=== PATIENT | male | born 1940 | race Caucasian/White ===

== ENCOUNTER → 2017-03-06 | Outpatient (CLI) | payer MEDICARE ==
[~2017-03-06] MED LIST: /WARF25TA OR; ACET65TA OR; LISI10TA4 PO; OMEP20TA7 PO; PERC5TAB8 OR; PROS5TAB OR; aleve; saw palmetto PO
== END ==
LOC: M SMT 10:12
PROVIDERS: ATTEND Urology
DX: N40.0 Benign prostatic hyperplasia without lower urinary tract symptoms (principal)

== ENCOUNTER → 2018-03-14 | Outpatient (CLI) | payer MEDICARE ==
[2018-03-14 13:42] LABS: PSA SCREENING 3.66 NG/ML (< 4.0)
== END ==
LOC: M SMT 09:50
DX: Z12.5 Encounter for screening for malignant neoplasm of prostate (principal)
CPT/HCPCS: G0103

== ENCOUNTER → 2018-03-20 | Outpatient (REF) | payer MEDICARE ==
[2018-03-20 14:11] LABS: APPEARANCE, URINE CLEAR (CLEAR); BACTERIA, URINE AUTO NEGATIVE (NEGATIVE); BILIRUBIN, URINE AUTO NEGATIVE (NEGATIVE); BLOOD, URINE BLOOD NEGATIVE (NEGATIVE); COLOR, URINE YELLOW (YELLOW); GLUCOSE, URINE (UA) AUTO NEGATIVE (NEGATIVE); KETONE, URINE AUTO NEGATIVE (NEGATIVE); LEUKOCYTE ESTERASE, URINE AUTO NEGATIVE (NEGATIVE); MUCUS, URINE SMALL (NEGATIVE); NITRITE, URINE AUTO NEGATIVE (NEGATIVE); PROTEIN, URINE AUTO NEGATIVE (NEGATIVE); RBC, URINE AUTO 0 /HPF (0-3); SPECIFIC GRAVITY URINE AUTO 1.009 (1.002-1.035); SQUAMOUS EPITHELIAL CELL UR AU 0 /HPF (0-6); UROBILINOGEN, URINE AUTO 0.2 mg/dL (0.0-2.0); WBC, URINE AUTO 0 /HPF (0-3)
== END ==
LOC: M SMT 13:16
DX: N40.0 Benign prostatic hyperplasia without lower urinary tract symptoms (principal)
CPT/HCPCS: 81001

== ENCOUNTER 2018-06-12 12:09 | Emergency (ER) | payer MEDICARE ==
[~2018-06-12] VITALS: Ht 175.3 cm; Wt 81.8 kg
[2018-06-12] MEDS ORDERED: MECLIZINE 25 MG TABLET PO ONE (13:30)
--- NOTE | 2018-06-12 13:40 | ECGEPIP ---
Stationary ECG Study [facility] - ED Test Date: 2018-06-12 Pat Name: DAVI LAZAR Department: Room: - Gender: M Utility Porter: TC : 1940 Requested By: Desirae Garcia Order Number: [id number] Reading MD: Ron Esteban Measurements Intervals [place] Rate: 54 P: 43 MS: 152 QRS: 1 QRSD: 131 T: 5 QT: 433 QTc: 411 Interpretive Statements SINUS BRADYCARDIA RIGHT BUNDLE BRANCH BLOCK, NEW COMPARED TO 08/25/14 Electronically Signed On 06-12-2018 13:40:06 EST by Ron Esteban
[2018-06-12 13:46] LABS: BASO # 0.1 10^3/uL (0.0-0.2); BASO % 0.6 % (0.0-1.0); EOS # 0.2 10^3/uL (0.0-0.50); EOS % 2.6 % (0.0-3.0); LYMPH # 1.6 10^3/uL (1.5-4.5); LYMPH % 20.1 % (24.0-44.0); MEAN CORPUSCULAR HEMOGLOBIN 29.6 pg (27.0-33.0); MEAN CORPUSCULAR HGB CONC 32.6 g/dl (32.0-36.5); MEAN CORPUSCULAR VOLUME 90.9 fl (80.0-96.0); MONO # 0.5 10^3/uL (0.0-0.8); MONO % 6.6 % (0.0-5.0); NEUTROPHILS # 5.6 10^3/uL (1.8-7.7); NEUTROPHILS % 69.7 % (36.0-66.0); PLATELET COUNT, AUTOMATED 301 10^3/uL (150-450); RED BLOOD COUNT 5.06 10^6/uL (4.30-6.10)
--- NOTE | 2018-06-12 13:46 | REP ---
CT Head without contrast HISTORY: Headache COMPARISON: 10/09/2014 Areas of decreased attenuation are present in the periventricular white matter. This represents small-vessel ischemic disease. There is no intraparenchymal hemorrhage, acute infarct, mass or midline shift. The ventricular system and cortical sulci are dilated consistent with minimal volume loss. There is no extra cerebral collection. There is no fracture. Mucosal thickening is present in the right sphenoid sinus. IMPRESSION: 1. Small vessel ischemic disease. 2. Minimal volume loss. Electronically Signed by Javid Juares MD 06/12/2018 01:37 P
[2018-06-12 13:57] LABS: ALBUMIN 3.6 GM/DL (3.2-5.2); ALT/SGPT 30 U/L (12-78); BILIRUBIN,TOTAL 0.3 MG/DL (0.2-1.0); BLOOD UREA NITROGEN 11 MG/DL (7-18); CARBON DIOXIDE LEVEL 29 MEQ/L (21-32); CHLORIDE LEVEL 104 MEQ/L (98-107); CK-MB VALUE MASS < 1.0 NG/ML (<3.6); CPK CREATINE PHOSPHOKINASE 82 U/L (39-308); CREATININE FOR GFR 0.91 MG/DL (0.70-1.30); GLOMERULAR FILTRATION RATE > 60.0 (>42); GLUCOSE, FASTING 104 MG/DL (70-100); MB/CK RELATIVE INDEX 1.22 (< OR =4); POTASSIUM SERUM 3.6 MEQ/L (3.5-5.1); SODIUM LEVEL 138 MEQ/L (136-145); TOTAL PROTEIN 8.1 GM/DL (6.4-8.2); TROPONIN I < 0.02 NG/ML (< 0.10)
[2018-06-12] MEDS ORDERED: MECL-68 PO (15:52)
[2018-06-12 16:04] VITALS: BP 143/83
== END 2018-06-12 16:06 | disposition home or self-care (01) ==
LOC: M ED 12:09
DX: R42 Dizziness and giddiness (principal); I45.10 Unspecified right bundle-branch block; I10 Essential (primary) hypertension; K21.9 Gastro-esophageal reflux disease without esophagitis; Z79.899 Other long term (current) drug therapy; Z88.5 Allergy status to narcotic agent; Z88.8 Allergy status to other drugs, medicaments and biological substances

== ENCOUNTER → 2019-03-20 | Outpatient (CLI) | payer MEDICARE ==
[~2019-03-20] MED LIST changes: -/WARF25TA OR; +COUM1TAB18 OR; +MECL-68 PO
== END ==
LOC: M SMT 09:35
PROVIDERS: ATTEND Nurse Practitioner Women's Health
DX: Z12.5 Encounter for screening for malignant neoplasm of prostate (principal)
CPT/HCPCS: 36415; G0103

== ENCOUNTER 2020-06-02 08:21 | Emergency (ER) | payer MEDICARE ==
[~2020-06-02] VITALS: Ht 175.3 cm; Wt 85.5 kg
[~2020-06-02 08:21] MED LIST changes: -MECL-68 PO; +MECL1TAB31 PO
[2020-06-02] MEDS ORDERED: FINA5TAB2 PO (08:32)
[2020-06-02 09:02] LABS: BASO # 0.1 10^3/uL (0.0-0.2); BASO % 0.8 % (0.0-1.0); EOS # 0.3 10^3/uL (0.0-0.5); EOS % 4.6 % (0.0-3.0); HEMATOCRIT 44.9 % (42.0-52.0); HEMOGLOBIN 14.4 g/dl (13.5-17.5); LYMPH # 2.1 10^3/uL (1.5-5.0); LYMPH % 31.5 % (24.0-44.0); MEAN CORPUSCULAR HEMOGLOBIN 29.6 pg (27.0-33.0); MEAN CORPUSCULAR HGB CONC 32.1 g/dl (32.0-36.5); MEAN CORPUSCULAR VOLUME 92.2 fl (80.0-96.0); MONO # 0.6 10^3/uL (0.0-0.8); MONO % 8.8 % (0.0-5.0); NEUTROPHILS # 3.5 10^3/uL (1.5-8.5); NEUTROPHILS % 54.1 % (36.0-66.0); PLATELET COUNT, AUTOMATED 278 10^3/uL (150-450); RED BLOOD COUNT 4.87 10^6/uL (4.30-6.10); WHITE BLOOD COUNT 6.5 10^3/uL (4.0-10.0)
[2020-06-02] MEDS ORDERED: ONDANSETRON 4MG/2ML VIAL As Ordered ONE (09:05)
--- NOTE | 2020-06-02 09:05 | REP ---
INDICATION: vertigo COMPARISON: 06/12/2018, 10/09/2014 TECHNIQUE: Axial noncontrast images from the skull base to the thoracic inlet with coronal reformations. This CT examination was performed using the following dose reduction techniques: Automated exposure control, adjustment of mA and/or kv according to the patient's size, and use of iterative reconstruction technique. FINDINGS: Age-related atrophy and microvascular ischemic changes are appreciated. The ventricles and sulci are symmetric. Holland-white differentiation is maintained. There is no evidence for acute intracranial hemorrhage, mass/mass effect, pathology or infarction. No extra-axial fluid collection. Calvarium is intact. Paranasal sinuses and mastoid air cells are clear. IMPRESSION: Age related atrophy and microvascular ischemic changes. No acute intracranial hemorrhage, infarction, or mass/mass effect. <Electronically signed by Gadiel Malik > 06/02/20 [id number]
--- NOTE | 2020-06-02 09:10 | REP ---
INDICATION: Syncope/near-syncope COMPARISON: 02/04/2013 TECHNIQUE: Portable AP view of the chest FINDINGS: The mediastinum and cardiac silhouette are stable and within normal limits for portable technique. The lung block are clear without acute consolidation, effusion, or pneumothorax. Skeletal structures are intact. IMPRESSION: No acute cardiopulmonary process appreciated. <Electronically signed by Gadiel Malik > 06/02/20 [id number]
[2020-06-02] MEDS ORDERED: ONDANSETRON 4MG/2ML VIAL IV ONE (09:15)
[2020-06-02 09:40] LABS: BLOOD UREA NITROGEN 12 MG/DL (7-18); CALCIUM LEVEL 8.8 MG/DL (8.8-10.2); CARBON DIOXIDE LEVEL 29 MEQ/L (21-32); CHLORIDE LEVEL 107 MEQ/L (98-107); CPK CREATINE PHOSPHOKINASE 69 U/L (39-308); CREATININE FOR GFR 0.91 MG/DL (0.70-1.30); FREE T4 1.04 NG/DL (0.76-1.46); GLOMERULAR FILTRATION RATE > 60.0 (>35); GLUCOSE, FASTING 108 MG/DL (70-100); MAGNESIUM LEVEL 2.1 MG/DL (1.8-2.4); POTASSIUM SERUM 3.8 MEQ/L (3.5-5.1); SODIUM LEVEL 143 MEQ/L (136-145); TROPONIN I < 0.02 NG/ML (< 0.10)
[2020-06-02 09:43] LABS: CK-MB VALUE MASS < 1.0 NG/ML (<3.6); MB/CK RELATIVE INDEX 1.45 (< OR =4)
[2020-06-02 09:44] LABS: INR 0.92; PROTHROMBIN TIME 12.6 SECONDS (12.5-14.3)
[2020-06-02 09:45] LABS: PARTIAL THROMBOPLASTIN TIME 26.3 SECONDS (24.2-38.5)
[2020-06-02 13:45] VITALS: BP 140/78
--- NOTE | 2020-06-03 13:27 | ECGEPIP ---
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
== END 2020-06-02 14:14 | disposition home or self-care (01) ==
LOC: M ED 08:21
DX: R26.81 Unsteadiness on feet (principal); I45.10 Unspecified right bundle-branch block; I10 Essential (primary) hypertension; E78.5 Hyperlipidemia, unspecified; K21.9 Gastro-esophageal reflux disease without esophagitis; N40.0 Benign prostatic hyperplasia without lower urinary tract symptoms; Z79.899 Other long term (current) drug therapy; Z88.5 Allergy status to narcotic agent; Z87.891 Personal history of nicotine dependence
CPT/HCPCS: 70450; 71045; 80048; 81001; 82550; 82553; 83605; 83735; 84439; 84443; 84484; 85025; 85610; 85730; 93005; 93041; 94760; 96374; 97112; 97116; 97161; 99285; J2405

== ENCOUNTER 2020-08-09 17:33 | Emergency (ER) | payer MEDICARE ==
[~2020-08-09] VITALS: Ht 177.8 cm; Wt 87.6 kg
[~2020-08-09 17:33] MED LIST changes: +FINA5TAB2 PO
[2020-08-09] MEDS ORDERED: SM S160C PO (17:45)
[2020-08-09] MEDS ORDERED: MECLIZINE 25 MG TABLET PO ONE (18:45)
[2020-08-09 19:02] LABS: BASO % 0.4 % (0.0-1.0); EOS # 0.1 10^3/uL (0.0-0.5); EOS % 1.3 % (0.0-3.0); HEMATOCRIT 44.5 % (42.0-52.0); HEMOGLOBIN 14.5 g/dl (13.5-17.5); LYMPH # 1.6 10^3/uL (1.5-5.0); LYMPH % 15.9 % (24.0-44.0); MEAN CORPUSCULAR HEMOGLOBIN 29.8 pg (27.0-33.0); MEAN CORPUSCULAR HGB CONC 32.6 g/dl (32.0-36.5); MEAN CORPUSCULAR VOLUME 91.4 fl (80.0-96.0); MONO # 0.7 10^3/uL (0.0-0.8); NEUTROPHILS # 7.7 10^3/uL (1.5-8.5); PLATELET COUNT, AUTOMATED 275 10^3/uL (150-450); RED BLOOD COUNT 4.87 10^6/uL (4.30-6.10); WHITE BLOOD COUNT 10.2 10^3/uL (4.0-10.0)
--- NOTE | 2020-08-09 19:29 | REPVR ---
PROCEDURE INFORMATION: Exam: CT Head Without Contrast Exam date and time: 08/09/2020 6:58 PM Age: 79 years old Clinical indication: Altered mental status/memory loss TECHNIQUE: Imaging protocol: Computed tomography of the head without contrast. Radiation optimization: All CT scans at this facility use at least one of these dose optimization techniques: automated exposure control; mA and/or kV adjustment per patient size (includes targeted exams where dose is matched to clinical indication); or iterative reconstruction. COMPARISON: CT Head without contrast 06/02/2020 8:51 AM FINDINGS: Brain: Mild nonspecific hypodensities of the periventricular and deep subcortical white matter, most likely secondary to chronic small vessel ischemic change. No intracranial hemorrhage or extra-axial fluid collection. No evidence of mass effect or midline shift. Holland-white matter differentiation is normal. Cerebral ventricles: Mild prominence of the ventricles and sulci, most likely attributed to parenchymal volume loss. Bones/joints: No acute osseus lesion or fracture. Paranasal sinuses: Visualized sinuses are unremarkable. No fluid levels. Mastoid air cells: Unremarkable. Soft tissues: Unremarkable. IMPRESSION: 1. No acute intracranial pathology. 2. Other chronic findings, as above. Electronically signed by: Elmer Shelton On 08/09/2020 19:29:09 PM
[2020-08-09 19:30] LABS: ALBUMIN 3.8 GM/DL (3.2-5.2); ALT/SGPT 43 U/L (12-78); BILIRUBIN,DIRECT 0.2 MG/DL (0.0-0.2); BILIRUBIN,TOTAL 0.5 MG/DL (0.2-1.0); BLOOD UREA NITROGEN 14 MG/DL (7-18); CALCIUM LEVEL 9.2 MG/DL (8.8-10.2); CARBON DIOXIDE LEVEL 29 MEQ/L (21-32); CHLORIDE LEVEL 106 MEQ/L (98-107); CK-MB VALUE MASS < 1.0 NG/ML (<3.6); CPK CREATINE PHOSPHOKINASE 100 U/L (39-308); CREATININE FOR GFR 0.87 MG/DL (0.70-1.30); GLOMERULAR FILTRATION RATE > 60.0 (>35); GLUCOSE, FASTING 115 MG/DL (70-100); POTASSIUM SERUM 4.1 MEQ/L (3.5-5.1); SODIUM LEVEL 140 MEQ/L (136-145); TOTAL PROTEIN 7.4 GM/DL (6.4-8.2); TROPONIN I < 0.02 NG/ML (< 0.10)
[2020-08-09 20:00] VITALS: BP 157/83
[2020-08-09] MEDS ORDERED: MECL1TAB31 PO (20:33)
--- NOTE | 2020-08-10 07:12 | ECGEPIP ---
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
== END 2020-08-09 20:46 | disposition home or self-care (01) ==
LOC: M ED 17:33
DX: R42 Dizziness and giddiness (principal); I45.10 Unspecified right bundle-branch block; I10 Essential (primary) hypertension; K21.9 Gastro-esophageal reflux disease without esophagitis; Z79.899 Other long term (current) drug therapy; Z88.5 Allergy status to narcotic agent; Z87.891 Personal history of nicotine dependence

== ENCOUNTER 2020-10-23 11:32 | Emergency (ER) | payer MEDICARE ==
[~2020-10-23] VITALS: Ht 177.8 cm; Wt 86.4 kg
[~2020-10-23 11:32] MED LIST changes: +SM S160C PO
--- NOTE | 2020-10-23 12:19 | REP ---
INDICATION: DYSPNEA/COUGH. COMPARISON: Comparison chest x-ray June 02, 2020. TECHNIQUE: Portable upright AP chest radiograph. FINDINGS: The lungs are well inflated and free of infiltrate. Pleural angles are sharp. Heart size is normal. Pulmonary vasculature is not increased. EKG monitoring electrodes are seen. IMPRESSION: No active disease. <Electronically signed by Juanito Jamil > 10/23/20 [id number]
[2020-10-23 12:28] LABS: VENOUS BASE EXCESS 1.2 (-2.0-2.0); VENOUS HCO3 24.8 MEQ/L (23.0-27.0); VENOUS O2 SATURATION 99.4 % (60.0-80.0); VENOUS PARTIAL PRESSURE CO2 36.2 mmHg (38.0-50.0); VENOUS PARTIAL PRESSURE O2 175.8 mmHg (30.0-50.0); VENOUS PH 7.453 UNITS (7.330-7.430); VENOUS STANDARD HCO3 25.6 MEQ/L; VENOUS TOTAL CO2 25.9 MEQ/L (24.0-28.0)
[2020-10-23 12:31] LABS: BASO # 0.1 10^3/uL (0.0-0.2); BASO % 0.8 % (0.0-1.0); EOS # 0.2 10^3/uL (0.0-0.5); EOS % 3.5 % (0.0-3.0); HEMATOCRIT 45.3 % (42.0-52.0); HEMOGLOBIN 14.7 g/dl (13.5-17.5); LYMPH # 1.5 10^3/uL (1.5-5.0); LYMPH % 24.8 % (24.0-44.0); MEAN CORPUSCULAR HEMOGLOBIN 29.8 pg (27.0-33.0); MEAN CORPUSCULAR HGB CONC 32.5 g/dl (32.0-36.5); MEAN CORPUSCULAR VOLUME 91.9 fl (80.0-96.0); MONO # 0.6 10^3/uL (0.0-0.8); MONO % 9.8 % (2.0-8.0); NEUTROPHILS # 3.7 10^3/uL (1.5-8.5); NEUTROPHILS % 60.9 % (36.0-66.0); PLATELET COUNT, AUTOMATED 262 10^3/uL (150-450); RED BLOOD COUNT 4.93 10^6/uL (4.30-6.10)
[2020-10-23 13:12] LABS: ALBUMIN 3.5 GM/DL (3.2-5.2); BILIRUBIN,DIRECT 0.1 MG/DL (0.0-0.2); BILIRUBIN,TOTAL 0.6 MG/DL (0.2-1.0); THYROID STIMULATING HORMONE 1.2 uIU/ML (0.358-3.740); TOTAL PROTEIN 7.2 GM/DL (6.4-8.2)
[2020-10-23] MEDS ORDERED: ISOVUE-370 76% 100ML VIAL As Ordered ONE (13:28)
--- NOTE | 2020-10-23 13:55 | REP ---
INDICATION: dyspnea. COMPARISON: Comparison is made with today's chest x-ray.. TECHNIQUE: Contrast dose: 75 ML of Isovue [address] technique: Helical scanning is acquired and overlapping 1.5 mm and contiguous 3 mm axial images are reformatted. In addition, maximum intensity projection and multiplanar re-formation images are generated in sagittal and coronal imaging projections. FINDINGS: There is good opacification in the pulmonary arterial tree. There is no evidence of vessel cut off or filling defect to suggest pulmonary embolus. Homogeneous opacity is seen in the thoracic aorta. There is no evidence of aneurysm or dissection. Lung window settings demonstrate no focal infiltrate. No pulmonary parenchymal mass or significant nodule is appreciated. There is no evidence of pleural or pericardial effusion. There is moderate vascular calcification along the course of the left coronary artery. In the upper abdomen, normal adrenal glands are observed. There is a small cyst in the upper pole the right kidney and there is pancolonic diverticulosis visible. Bone window settings show no bony destructive lesion. IMPRESSION: No CT evidence of pulmonary embolus. Extensive left coronary artery vascular calcification. Small cyst upper pole right kidney. Colonic diverticulosis. Otherwise negative. <Electronically signed by Juanito Jamil > 10/23/20 [id number]
[2020-10-23] MEDS ORDERED: ASPI81CH33 PO (14:14)
[2020-10-23] MEDS ORDERED: ASPIRIN 81 MG CHEW TABLET PO ONE (14:15)
[2020-10-23 14:17] VITALS: BP 167/81
--- NOTE | 2020-10-24 07:44 | ECGEPIP ---
[facility] - ED Test Date: 2020-10-23 Pat Name: DAVI LAZAR Department: Room: - Gender: Male Helper Electrical: IRINA : 1940 Requested By: Desirae Garcia Order Number: [id number] Reading MD: Ron Esteban Measurements Intervals [place] Rate: 56 P: 44 IN: 158 QRS: -21 QRSD: 126 T: 1 QT: 434 QTc: 418 Interpretive Statements Sinus bradycardia Right bundle branch block SIMILAR TO 08/09/20 Electronically Signed on 10-24-2020 7:44:24 EDT by Ron Esteban
--- NOTE | 2020-10-25 11:10 | ED PDOC ---
Post-Departure Follow-Up [facility] and [facility] faxed formal report of cta chest for fu Siddharth Miller MD October 25, 2020 11:10
== END 2020-10-23 14:29 | disposition home or self-care (01) ==
LOC: M ED 11:32
DX: R06.00 Dyspnea, unspecified (principal); R00.1 Bradycardia, unspecified; I45.10 Unspecified right bundle-branch block; I10 Essential (primary) hypertension; E78.5 Hyperlipidemia, unspecified; K21.9 Gastro-esophageal reflux disease without esophagitis; Z87.891 Personal history of nicotine dependence; Z85.46 Personal history of malignant neoplasm of prostate; I25.84 Coronary atherosclerosis due to calcified coronary lesion; N28.1 Cyst of kidney, acquired; K57.30 Diverticulosis of large intestine without perforation or abscess without bleeding; Z79.82 Long term (current) use of aspirin; Z79.899 Other long term (current) drug therapy; Z88.5 Allergy status to narcotic agent
CPT/HCPCS: 71045; 71275; 80047; 80076; 82803; 83880; 84443; 84484; 85025; 93005; 93041; 99285; Q9967

== ENCOUNTER 2021-01-07 10:17 | Emergency (ER) | payer MEDICARE ==
[~2021-01-07] VITALS: Ht 177.8 cm; Wt 85.1 kg
[2021-01-07 10:17] VITALS: BP 174/85
[~2021-01-07 10:17] MED LIST changes: +ASPI81CH33 PO; +RA S160C PO; -SM S160C PO
== END 2021-01-07 11:31 | disposition left against medical advice (07) ==
LOC: M ED 10:17
DX: Z53.29 Procedure and treatment not carried out because of patient's decision for other reasons (principal)

== ENCOUNTER → 2021-01-20 | Outpatient (CLI) | payer MEDICARE ==
[~2021-01-20] MED LIST changes: -RA S160C PO; +SM S160C PO
--- NOTE | 2021-01-20 17:30 | REP ---
INDICATION: CERVICALGIA. COMPARISON: None. TECHNIQUE: Full cervical spine series including flexion extension lateral views, 7 views obtained. FINDINGS: There is no evidence of compression fracture. With flexion there is minimal anterolisthesis of C4 on C5, approximately 2 mm. There is mild diffuse spurring. There is moderate disc space narrowing and subchondral sclerosis at C5-6 and C6-7. There is diffuse narrowing, sclerosis and spurring at the posterior facet joints. I suspect moderate foraminal narrowing on the right at C3-4. I suspect mild foraminal narrowing on the right at C4-5. I suspect mild bilateral narrowing of the neural foramina at C5-6 and C6-7. IMPRESSION: Degenerative changes as above. <Electronically signed by Chadwick Holland > 01/20/21 [id number]
== END ==
LOC: M PLAIMG 11:34
PROVIDERS: ATTEND Physician Assistant
DX: M54.2 Cervicalgia (principal)

== ENCOUNTER 2021-01-27 18:20 | Emergency (ER) | payer MEDICARE ==
[~2021-01-27] VITALS: Ht 177.8 cm; Wt 84.3 kg
--- NOTE | 2021-01-27 19:23 | REP ---
INDICATION: CHEST PAIN COMPARISON: 10/23/2020 TECHNIQUE: Portable AP view of the chest FINDINGS: The mediastinum and cardiac silhouette are stable and within normal limits for portable technique. The lung block are clear without acute consolidation, effusion, or pneumothorax. Skeletal structures are intact. IMPRESSION: No acute cardiopulmonary process appreciated. <Electronically signed by Gadiel Malik > 01/27/21 [id number]
[2021-01-27 19:42] LABS: BASO # 0.1 10^3/uL (0.0-0.2); BASO % 0.7 % (0.0-1.0); EOS # 0.2 10^3/uL (0.0-0.5); EOS % 2.1 % (0.0-3.0); HEMATOCRIT 45.6 % (42.0-52.0); HEMOGLOBIN 14.9 g/dl (13.5-17.5); LYMPH # 1.8 10^3/uL (1.5-5.0); LYMPH % 24.6 % (24.0-44.0); MEAN CORPUSCULAR HEMOGLOBIN 29.9 pg (27.0-33.0); MEAN CORPUSCULAR HGB CONC 32.7 g/dl (32.0-36.5); MEAN CORPUSCULAR VOLUME 91.6 fl (80.0-96.0); MONO # 0.6 10^3/uL (0.0-0.8); MONO % 8.2 % (2.0-8.0); NEUTROPHILS # 4.8 10^3/uL (1.5-8.5); PLATELET COUNT, AUTOMATED 285 10^3/uL (150-450); RED BLOOD COUNT 4.98 10^6/uL (4.30-6.10); WHITE BLOOD COUNT 7.5 10^3/uL (4.0-10.0)
[2021-01-27 20:00] LABS: BLOOD UREA NITROGEN 8 MG/DL (7-18); CALCIUM LEVEL 9.4 MG/DL (8.8-10.2); CARBON DIOXIDE LEVEL 29 MEQ/L (21-32); CHLORIDE LEVEL 109 MEQ/L (98-107); CK-MB VALUE MASS 1.1 NG/ML (<3.6); CPK CREATINE PHOSPHOKINASE 77 U/L (39-308); GLOMERULAR FILTRATION RATE > 60.0 (>35); GLUCOSE, FASTING 99 MG/DL (70-100); MB/CK RELATIVE INDEX 1.43 (< OR =4); POTASSIUM SERUM 4.1 MEQ/L (3.5-5.1); SODIUM LEVEL 142 MEQ/L (136-145); TROPONIN I < 0.02 NG/ML (< 0.10)
[2021-01-27 22:06] LABS: CK-MB VALUE MASS < 1.0 NG/ML (<3.6); CPK CREATINE PHOSPHOKINASE 62 U/L (39-308); MB/CK RELATIVE INDEX 1.61 (< OR =4); TROPONIN I < 0.02 NG/ML (< 0.10)
[2021-01-27 22:31] VITALS: BP 165/97
--- NOTE | 2021-01-28 21:17 | ECGEPIP ---
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
--- NOTE | 2021-01-28 21:18 | ECGEPIP ---
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
== END 2021-01-27 23:02 | disposition home or self-care (01) ==
LOC: M ED 18:20
DX: R07.89 Other chest pain (principal); I45.10 Unspecified right bundle-branch block; I10 Essential (primary) hypertension; K21.9 Gastro-esophageal reflux disease without esophagitis; Z88.5 Allergy status to narcotic agent; Z79.899 Other long term (current) drug therapy

== ENCOUNTER 2021-03-08 16:46 | Emergency (ER) | payer MEDICARE ==
[~2021-03-08] VITALS: Ht 177.8 cm; Wt 81.8 kg
[2021-03-08] MEDS ORDERED: ACETAMINOPHEN TAB 650MG DOSE (2X325MG) PO PRN (17:30)
--- NOTE | 2021-03-08 18:09 | REP ---
INDICATION: Coronavirus workup COMPARISON: 01/27/2021 TECHNIQUE: Portable AP view of the chest FINDINGS: The mediastinum and cardiac silhouette are stable and within normal limits for portable technique. The lung block are clear without acute consolidation, effusion, or pneumothorax. Skeletal structures are intact. IMPRESSION: No acute cardiopulmonary process appreciated. <Electronically signed by Gadiel Malik > 03/08/21 [id number]
[2021-03-08 18:49] LABS: BASO % 0.2 % (0.0-1.0); EOS % 0.6 % (0.0-3.0); HEMATOCRIT 45.3 % (42.0-52.0); HEMOGLOBIN 15.2 g/dl (13.5-17.5); LYMPH # 1.1 10^3/uL (1.5-5.0); LYMPH % 16.5 % (24.0-44.0); MEAN CORPUSCULAR HEMOGLOBIN 30.1 pg (27.0-33.0); MEAN CORPUSCULAR HGB CONC 33.6 g/dl (32.0-36.5); MEAN CORPUSCULAR VOLUME 89.7 fl (80.0-96.0); MONO # 0.6 10^3/uL (0.0-0.8); MONO % 8.5 % (2.0-8.0); NEUTROPHILS # 4.8 10^3/uL (1.5-8.5); NEUTROPHILS % 73.9 % (36.0-66.0); PLATELET COUNT, AUTOMATED 213 10^3/uL (150-450); RED BLOOD COUNT 5.05 10^6/uL (4.30-6.10); WHITE BLOOD COUNT 6.4 10^3/uL (4.0-10.0)
[2021-03-08 19:00] LABS: INR 0.97; PROTHROMBIN TIME 13.3 SECONDS (12.7-14.5)
[2021-03-08 19:01] LABS: PARTIAL THROMBOPLASTIN TIME 27.9 SECONDS (25.9-37.0)
[2021-03-08 19:04] LABS: D-DIMER QUANT 362.45 ng/ml (<500)
[2021-03-08 19:13] LABS: RSV AMPLIFICATION NEGATIVE (NEGATIVE)
[2021-03-08 19:22] LABS: ALBUMIN 3.5 GM/DL (3.2-5.2); ALT/SGPT 28 U/L (12-78); BILIRUBIN,TOTAL 0.5 MG/DL (0.2-1.0); BLOOD UREA NITROGEN 10 MG/DL (7-18); CALCIUM LEVEL 9.4 MG/DL (8.8-10.2); CARBON DIOXIDE LEVEL 28 MEQ/L (21-32); CHLORIDE LEVEL 103 MEQ/L (98-107); CK-MB VALUE MASS < 1.0 NG/ML (<3.6); CPK CREATINE PHOSPHOKINASE 46 U/L (39-308); CREATININE FOR GFR 0.76 MG/DL (0.70-1.30); FERRITIN 438 NG/ML (26-388); GLOMERULAR FILTRATION RATE > 60.0 (>35); GLUCOSE, FASTING 124 MG/DL (70-100); LDH LACTATE DEHYDROGENASE 152 U/L (87-241); MAGNESIUM LEVEL 2.1 MG/DL (1.8-2.4); MB/CK RELATIVE INDEX 2.17 (< OR =4); POTASSIUM SERUM 4.1 MEQ/L (3.5-5.1); SODIUM LEVEL 137 MEQ/L (136-145); TOTAL PROTEIN 7.1 GM/DL (6.4-8.2); TROPONIN I < 0.02 NG/ML (< 0.10)
[2021-03-09] MEDS ORDERED: EPINEPHrine INJ 1 MG/ML 1ML AMP IM PRN (00:35)
[2021-03-09] MEDS ORDERED: CASIRIVIMAB/IMDEVIMAB 1,200 MG in NS 250 ML IV ONE (00:35)
[2021-03-09] MEDS ORDERED: NS 1,000 ML IV SCH (00:35)
[2021-03-09] MEDS ORDERED: ACETAMINOPHEN TAB 650MG DOSE (2X325MG) PO ONE (00:35)
[2021-03-09] MEDS ORDERED: diphenhydrAMINE 50MG/ML VIAL (J1200) IV PRN (00:35)
[2021-03-09] MEDS ORDERED: ALBUTEROL SULFATE 2.5 MG/0.5 ML INH NEB SOLN INH PRN (00:35)
[2021-03-09] MEDS ORDERED: ALBUTEROL 90 MCG/ACT 8GM HFA INHALER INH PRN (00:35)
[2021-03-09] MEDS ORDERED: methylPREDNISolone 125MG 2ML VIAL IV PRN (00:35)
[2021-03-09] MEDS ORDERED: diphenhydrAMINE 25MG CAP PO ONE (00:35)
[2021-03-09 06:15] VITALS: BP 157/84
--- NOTE | 2021-03-09 17:38 | ECGEPIP ---
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
== END 2021-03-09 07:20 | disposition home or self-care (01) ==
LOC: M ED 16:46
DX: R53.1 Weakness (principal); U07.1 COVID-19; I10 Essential (primary) hypertension; K21.9 Gastro-esophageal reflux disease without esophagitis; Z88.5 Allergy status to narcotic agent; Z79.899 Other long term (current) drug therapy

== ENCOUNTER 2021-03-09 07:30 | Outpatient (CLI) | payer MEDICARE ==
[~2021-03-09] VITALS: Ht 177.8 cm; Wt 83.2 kg
--- NOTE | 2021-03-09 02:58 | HPEPDOC ---
General Date of Admission 03/09/21 Date of Service: Mar 09, 2021 Chief Complaint URI symptoms Source: Patient History of Present Illness Mr. Smith is an 80-year-old male with significant history of hypertension, chronic back pain, GERD, OA and BPH who presents with URI complaints. Patient reports feeling ill for the past week. Patient describes generalized fatigue/weakness, headache, subjective fever, dyspnea on exertion and dry cough. Patient Covid positive. Patient reports that he lives with roommate and she also tested positive for Covid. Patient fortunately has not required any oxygen and does with his age have risk factors meeting criteria for MAb. Patient agreeable to Mab. Home Medications Scheduled Finasteride (Finasteride) 5 Mg Tablet, PO DAILY, (Reported) Lisinopril (Lisinopril) 10 Mg Tab, 10 MG PO DAILY, (Reported) Meclizine HCl (Meclizine HCl) 25 Mg Tablet, 25 MG PO Q8H Omeprazole (Omeprazole) 20 Mg Tab, 40 MG PO DAILY, (Reported) Miscellaneous Medications Saw Toney (Saw Toney) 160 Mg Capsule, 160 MG PO, (Reported) Allergies Coded Allergies: oxycodone (Verified Adverse Reaction, Intermediate, vertigo, 06/02/20) Past Medical History Medical History hypertension, chronic back pain, GERD, OA, BPH Family History Significant Family History: No pertinent family hx Social History * Smoker: Denies Alcohol: Denies Drugs: denies Psychosocial History: No pertinent psych hx A-FIB/CHADSVASC A-FIB History Current/History of A-Fib/PAF?: No Current PO Anticoag Therapy: No Review of Systems Constitutional: Reports: Fever, Malaise, Weakness, Fatigue; Denies: Chills, Night Sweats Eyes: Denies: Pain, Vision change ENT: Reports: Sinus Congestion, Sore Throat; Denies: Head Aches, Ear Pain, Dysphagia Skin: Denies: Rash, Lesions, Breakdown Pulmonary: Reports: Dyspnea, Cough Cardiovascular: Denies: Chest Pain, Palpitations, Orthopnea, Paroxysmal Noc. Dyspnea, Lt Headedness Gastrointestinal: Denies: Nausea, Vomiting, Abdominal Pain, Diarrhea Genitourinary: Denies: Dysuria, Frequency, Incontinence, Retention Hematologic: Denies: Bruising, Bleeding Excessively Musculoskeletal: Reports: Neck Pain, Back Pain; Denies: Joint Pain, Muscle Pain, Spasms Neurological: Denies: Weakness, Numbness, Change in speech, Confusion Psych: Reports: Mood Normal; Denies: Depression, Memory Issues Physical Examination General Exam: Positive: Alert, Cooperative, No Acute Distress Eye Exam: Positive: PERRLA, Conjunctiva & lids normal, EOMI; Negative: Sclera icteric ENT Exam: Positive: Atraumatic, Mucous membr. moist/pink, Pharynx Normal Neck Exam: Positive: Supple; Negative: JVD, thyromegaly Chest Exam: Positive: Diminished Heart Exam: Positive: Rate Normal, Regular Rhythm, Normal S1, Normal S2; Negative: Murmurs, Rubs Telemetry: Positive: No significant arrhythmia Abdomen Exam: Positive: Normal bowel sounds, Soft; Negative: Tenderness, Hepatospenomegaly Extremity Exam: Positive: Normal pulses; Negative: Clubbing, Cyanosis, Edema Skin Exam: Positive: Nl turgor and temperature; Negative: Breakdown, Lesion Neuro Exam: Positive: Normal Gait, Normal Speech, Cranial Nerves 3-12 NL, Reflexes 2+ Psych Exam: Positive: Mental status NL, Mood NL, Oriented x 3 Vital Signs Temp 98.3, heart rate 56, respiratory rate 18, blood pressure 162/84, pulse ox 96% room air Assessment/Plan #. Covid + -Patient meets outpatient criteria and will be scheduled with infusion today upon timing availability -Premedications Benadryl and Tylenol -Monoclonal antibody infusion per protocol -PRN solumedrol/ albuterol/ benadryl if pt with reactivity -Discharge with written instructions for home monitoring once infusion complete per protocol CODE STATUS: Full code Disposition: Home once infusion complete per policy discharge guidelines Plan / VTE VTE Prophylaxis Ordered?: No VTE Exclusion Mechanical Proph: Low Risk for VTE SUGAR JANG NP Mar 09, 2021 02:56 MAXWELL JIMENEZ MD Mar 11, 2021 05:41
[~2021-03-09 07:30] MED LIST changes: +ACETAMINOPHEN TAB 650MG DOSE (2X325MG) PO ONE; +ACETAMINOPHEN TAB 650MG DOSE (2X325MG) PO PRN; +ALBUTEROL 90 MCG/ACT 8GM HFA INHALER INH PRN; +ALBUTEROL SULFATE 2.5 MG/0.5 ML INH NEB SOLN INH PRN; +EPINEPHrine INJ 1 MG/ML 1ML AMP IM PRN; +NS 1,000 ML IV SCH; +diphenhydrAMINE 25MG CAP PO ONE; +diphenhydrAMINE 50MG/ML VIAL (J1200) IV PRN; +methylPREDNISolone 125MG 2ML VIAL IV PRN
[2021-03-09 07:40] VITALS: BP 155/83
[2021-03-09 08:35] VITALS: BP 155/83
[2021-03-09 09:05] VITALS: BP 163/72
[2021-03-09 09:35] VITALS: BP 158/82
[2021-03-09 09:57] VITALS: BP 161/76
[2021-03-09 10:59] VITALS: BP 156/82
[2021-03-09] MEDS ORDERED: CASIRIVIMAB/IMDEVIMAB 1,200 MG in NS 250 ML IV ONE (12:00)
== END 2021-03-09 11:05 | disposition home or self-care (01) ==
LOC: M OPCLI4PR 07:30 → M MS4PR 07:30 → M OPCLI4PR 11:05
PROVIDERS: ATTEND Internal Medicine
DX: U07.1 COVID-19 (principal); Z88.5 Allergy status to narcotic agent
CPT/HCPCS: 96361; M0243

== ENCOUNTER → 2022-02-13 | Outpatient (CLI) | payer MEDICARE ==
[~2022-02-13] MED LIST changes: -ACETAMINOPHEN TAB 650MG DOSE (2X325MG) PO ONE; -ACETAMINOPHEN TAB 650MG DOSE (2X325MG) PO PRN; -ALBUTEROL 90 MCG/ACT 8GM HFA INHALER INH PRN; -ALBUTEROL SULFATE 2.5 MG/0.5 ML INH NEB SOLN INH PRN; -EPINEPHrine INJ 1 MG/ML 1ML AMP IM PRN; +LISI10TA22 PO; -NS 1,000 ML IV SCH; +OMEP40CA5 PO; +RA S160C PO; +SAW450CA5 PO; +SERT50TA29 PO; -SM S160C PO; -diphenhydrAMINE 25MG CAP PO ONE; -diphenhydrAMINE 50MG/ML VIAL (J1200) IV PRN; -methylPREDNISolone 125MG 2ML VIAL IV PRN
== END ==
LOC: M LABSMTC 09:20
PROVIDERS: ATTEND Anesthesiology
DX: Z01.818 Encounter for other preprocedural examination (principal); Z11.52 Encounter for screening for COVID-19

== ENCOUNTER 2022-02-16 06:35 | Day surgery (SDC) | payer MEDICARE ==
[~2022-02-16] VITALS: Ht 177.8 cm; Wt 87.0 kg
[~2022-02-16 06:35] MED LIST changes: +CYCLOPENTOLATE 1% OPHTH SOLN 2 ML BTL OS SCH; +FLURBIPROFEN 0.03% OPHTH SOLN 2.5 ML OS SCH; +LIDOCAINE 1% SDV 5ML VIAL As Ordered ONE; +LR 1,000 ML IV SCH; +MAXITROL OPHTH SUSP 5 ML As Ordered ONE; +PHENYLEPHRINE 2.5% OPHTH SOL 2ML OS SCH; +TETRACAINE 0.5% OPHTH SOLN 4ML OS SCH
[2022-02-16] MEDS ORDERED: MIDAZOLAM INJ 2MG/2ML VIAL (J2250 PER 1MG) As Ordered ONE (09:34)
[2022-02-16] MEDS ORDERED: fentaNYL 100 MCG/2 ML INJECTION As Ordered ONE (09:34)
[2022-02-16] MEDS ORDERED: TRYPAN BLUE 0.06 % 2.25 ML OPHTH SYR (VISIONBLUE) As Ordered ONE (09:46)
[2022-02-16] MEDS ORDERED: ACETYLCHOLINE OPHTH SOLN 1% 2ML (MIOCHOL-E) As Ordered ONE (10:20)
[2022-02-16 10:30] VITALS: BP 156/89
== END 2022-02-16 11:01 | disposition home or self-care (01) ==
LOC: M SDC 06:35
PROVIDERS: ATTEND Ophthalmology
DX: H25.12 Age-related nuclear cataract, left eye (principal); I10 Essential (primary) hypertension; K21.9 Gastro-esophageal reflux disease without esophagitis; K57.92 Diverticulitis of intestine, part unspecified, without perforation or abscess without bleeding; R97.20 Elevated prostate specific antigen [PSA]; Z96.641 Presence of right artificial hip joint; Z79.899 Other long term (current) drug therapy; Z88.7 Allergy status to serum and vaccine; Z88.5 Allergy status to narcotic agent; Z87.891 Personal history of nicotine dependence
CPT/HCPCS: 66984; J2250; J3010; V2632

== ENCOUNTER → 2022-04-17 | Outpatient (CLI) | payer MEDICARE ==
[~2022-04-17] MED LIST changes: -CYCLOPENTOLATE 1% OPHTH SOLN 2 ML BTL OS SCH; -FLURBIPROFEN 0.03% OPHTH SOLN 2.5 ML OS SCH; -LIDOCAINE 1% SDV 5ML VIAL As Ordered ONE; -LR 1,000 ML IV SCH; -MAXITROL OPHTH SUSP 5 ML As Ordered ONE; -PHENYLEPHRINE 2.5% OPHTH SOL 2ML OS SCH; -TETRACAINE 0.5% OPHTH SOLN 4ML OS SCH
== END ==
LOC: M LABSMTC 11:24
PROVIDERS: ATTEND Anesthesiology
DX: Z01.812 Encounter for preprocedural laboratory examination (principal); Z11.52 Encounter for screening for COVID-19

== ENCOUNTER 2022-04-20 07:08 | Day surgery (SDC) | payer MEDICARE ==
[~2022-04-20] VITALS: Ht 177.8 cm; Wt 88.0 kg
[~2022-04-20 07:08] MED LIST changes: +LIDOCAINE 1% 1ML PF SYRINGE (OR EYE CASES) As Ordered ONE; +LR 1,000 ML IV SCH; +MAXITROL OPHTH SUSP 5 ML As Ordered ONE
[2022-04-20] MEDS ORDERED: MIDAZOLAM INJ 2MG/2ML VIAL (J2250 PER 1MG) As Ordered ONE (07:35)
[2022-04-20] MEDS ORDERED: fentaNYL 100 MCG/2 ML INJECTION As Ordered ONE (07:35)
[2022-04-20] MEDS: TETRACAINE 0.5% OPHTH SOLN 4ML OD SCH ×2 (07:55→07:56)
[2022-04-20] MEDS: PHENYLEPHRINE 2.5% OPHTH SOL 2ML OD SCH ×3 (07:55→07:59)
[2022-04-20] MEDS: FLURBIPROFEN 0.03% OPHTH SOLN 2.5 ML OD SCH ×3 (07:55→07:59)
[2022-04-20] MEDS: CYCLOPENTOLATE 1% OPHTH SOLN 2 ML BTL OD SCH ×3 (07:55→07:59)
[2022-04-20 10:35] VITALS: BP 155/91
== END 2022-04-20 10:55 | disposition home or self-care (01) ==
LOC: M SDC 07:08
PROVIDERS: ATTEND Ophthalmology
DX: H25.11 Age-related nuclear cataract, right eye (principal); I10 Essential (primary) hypertension; R12 Heartburn; R42 Dizziness and giddiness; F41.9 Anxiety disorder, unspecified; F32.A Depression, unspecified; Z79.899 Other long term (current) drug therapy; Z88.5 Allergy status to narcotic agent; Z87.891 Personal history of nicotine dependence
CPT/HCPCS: 66984; J2250; J3010; V2632

== ENCOUNTER → 2022-05-19 | Outpatient (CLI) | payer MEDICARE ==
[~2022-05-19] MED LIST changes: -LIDOCAINE 1% 1ML PF SYRINGE (OR EYE CASES) As Ordered ONE; -LR 1,000 ML IV SCH; -MAXITROL OPHTH SUSP 5 ML As Ordered ONE
[2022-05-19 11:36] LABS: ALBUMIN 3.6 G/DL (3.2-5.2); ALKALINE PHOSPHATASE 48 U/L (46-116); ALT/SGPT 27 U/L (7.0-40); AST/SGOT 24 U/L (<34); BILIRUBIN,TOTAL 0.5 MG/DL (0.3-1.2); BLOOD UREA NITROGEN 10 MG/DL (9-23); CALCIUM LEVEL 9.5 MG/DL (8.3-10.6); CARBON DIOXIDE LEVEL 30 MMOL/L (20-31); CHLORIDE LEVEL 104 MMOL/L (98-107); CREATININE FOR GFR 0.83 MG/DL (0.70-1.30); GLOMERULAR FILTRATION RATE > 60.0 (>35); GLUCOSE, FASTING 84 MG/DL (74-106); POTASSIUM SERUM 4.6 MMOL/L (3.5-5.1); SODIUM LEVEL 142 MMOL/L (136-145); TOTAL PROTEIN 7.3 G/DL (5.7-8.2)
== END ==
LOC: M WUC 08:49
PROVIDERS: ATTEND Internal Medicine
DX: R73.01 Impaired fasting glucose (principal)

== ENCOUNTER 2022-06-20 21:03 | Emergency (ER) | payer MEDICARE ==
[~2022-06-20] VITALS: Ht 175.3 cm; Wt 89.4 kg
[2022-06-20 21:40] LABS: BASO # 0.1 10^3/uL (0.0-0.2); BASO % 0.7 % (0.0-1.0); EOS # 0.3 10^3/uL (0.0-0.5); EOS % 3.1 % (0.0-3.0); HEMATOCRIT 43.8 % (42.0-52.0); HEMOGLOBIN 14.3 g/dl (13.5-17.5); LYMPH # 2.2 10^3/uL (1.5-5.0); LYMPH % 25.1 % (24.0-44.0); MEAN CORPUSCULAR HEMOGLOBIN 29.9 pg (27.0-33.0); MEAN CORPUSCULAR HGB CONC 32.6 g/dl (32.0-36.5); MEAN CORPUSCULAR VOLUME 91.4 fl (80.0-96.0); MONO # 0.7 10^3/uL (0.0-0.8); MONO % 8.2 % (2.0-8.0); NEUTROPHILS # 5.4 10^3/uL (1.5-8.5); NEUTROPHILS % 62.6 % (36.0-66.0); PLATELET COUNT, AUTOMATED 268 10^3/uL (150-450); RED BLOOD COUNT 4.79 10^6/uL (4.30-6.10); WHITE BLOOD COUNT 8.7 10^3/uL (4.0-10.0)
[2022-06-20 21:52] LABS: INR 0.92; PROTHROMBIN TIME 12.6 SECONDS (12.5-14.5)
[2022-06-20 22:13] LABS: LIPASE 46 U/L (12-53)
[2022-06-20 22:14] LABS: CK-MB VALUE MASS < 1.0 NG/ML (<3.6)
[2022-06-20 22:15] LABS: ALBUMIN 3.5 G/DL (3.2-5.2); ALKALINE PHOSPHATASE 50 U/L (46-116); ALT/SGPT 27 U/L (7.0-40); AST/SGOT 21 U/L (<34); BILIRUBIN,DIRECT < 0.1 MG/DL (<0.4); BILIRUBIN,TOTAL 0.3 MG/DL (0.3-1.2); BLOOD UREA NITROGEN 11 MG/DL (9-23); CALCIUM LEVEL 8.9 MG/DL (8.3-10.6); CARBON DIOXIDE LEVEL 25 MMOL/L (20-31); CHLORIDE LEVEL 105 MMOL/L (98-107); CREATININE FOR GFR 0.76 MG/DL (0.70-1.30); GLOMERULAR FILTRATION RATE > 60.0 (>35); GLUCOSE, FASTING 113 MG/DL (74-106); POTASSIUM SERUM 3.9 MMOL/L (3.5-5.1); SODIUM LEVEL 140 MMOL/L (136-145); TOTAL PROTEIN 6.8 G/DL (5.7-8.2)
[2022-06-20 22:16] LABS: CPK CREATINE PHOSPHOKINASE 92 U/L (46-171); MB/CK RELATIVE INDEX 1.08 (< OR =4)
[2022-06-20 22:17] LABS: THYROID STIMULATING HORMONE 3.386 uIU/ML (0.55-4.78)
[2022-06-20 23:05] LABS: CK-MB VALUE MASS < 1.0 NG/ML (<3.6)
[2022-06-20 23:06] LABS: CPK CREATINE PHOSPHOKINASE 83 U/L (46-171)
[2022-06-21 01:01] VITALS: BP 162/92
== END 2022-06-21 00:49 | disposition home or self-care (01) ==
LOC: M ED 21:50
DX: R55 Syncope and collapse (principal); I10 Essential (primary) hypertension; R94.31 Abnormal electrocardiogram [ECG] [EKG]; R42 Dizziness and giddiness; K21.9 Gastro-esophageal reflux disease without esophagitis; R97.20 Elevated prostate specific antigen [PSA]; Z87.891 Personal history of nicotine dependence; Z88.5 Allergy status to narcotic agent; Z79.899 Other long term (current) drug therapy